=== PATIENT | female | born 1965 | race Native Hawaiian/Other Pacific Islander ===

== ENCOUNTER 2017-11-26 16:46 | Emergency (ER) | payer OTHER, SELFPAY ==
[2017-11-26 16:50] VITALS: BP 156/100; PULSE 77; RESP 15; TEMP 36.6; O2SAT 100
--- NOTE | 2017-11-26 17:07 | ED.CHESTPAIN ---
HPI - Chest Pain <Danica Mcneil PA-C - Last Filed: 11/26/17 19:35> General Chief Complaint: Chest Pain Stated Complaint: ABNORMAL EKG EARLIER TODAY Time Seen by Provider: 11/26/17 17:07 Source: patient and family Mode of arrival: ambulatory Limitations: no limitations History of Present Illness HPI narrative: This 52-year-old female is sent in by her PCP today due to abnormal EKG done at the office. She states that there was some type of concerned because that was different from her previous EKG. She was not given a copy to bring. She states that this was being done because she has been lightheaded. She states that she has a history of chronic vertigo however she has been more lightheaded and at least the last couple of days. She states that she has had a tight chest which started this morning. She has also had chest pain which she describes is burning. She states in quality it is like her acid reflux, but somewhat more severe and was feeling it in her back somewhat today which also prompted her doctor visit. She states overall the reflux has been worse for the last 4-5 days, not responding to Tums as usual and keeping her up at night. She states that she has been coughing due to the reflux and last night actually vomited because of the burning. She has taken Tums today without improvement. She took 2 omeprazole a couple of hours ago and states that it is starting to get better. She denies any abdominal pain or nausea now. She denies any new pain or swelling in her extremities. She denies any wheeze, other upper respiratory symptoms, fever, chills, or sweats. She has not had any bowel or bladder symptoms or any other new complaints. She states that her burning pain in her chest has been fairly consistent without exacerbating or alleviating features, tightness has been persistent also. She thinks this could be correlated with the poor air quality right now as she has a history of lobectomy for lung cancer and some emphysema. Related Data Home Medications Medication Instructions Recorded Confirmed escitalopram oxalate 20 mg PO DAILY 11/26/17 11/26/17 lisinopril 10 mg PO DAILY 11/26/17 11/26/17 omeprazole 40 mg PO DAILY 11/26/17 11/26/17 Previous Rx's Medication Instructions Recorded lidocaine HCl [Lidocaine Viscous] 15 ml MM Q4H PRN #150 ml 11/26/17 Allergies Allergy/AdvReac Type Severity Reaction Status Date / Time No Known Drug Allergies Allergy Verified 11/26/17 16:57 Review of Systems <Danica Mcneil PA-C - Last Filed: 11/26/17 19:35> Review of Systems All systems reviewed & are unremarkable except as noted in HPI and below PFSH <Danica Mcneil PA-C - Last Filed: 11/26/17 19:35> Comment: Twenty-five pack-years tobacco, quit 2006. Denies ETOH or street drugs Exam <RAULITO Rosen Last Filed: 11/26/17 19:35> Narrative Exam Narrative: GENERAL APPEARANCE: Patient sitting comfortably, in no distress. HEENT: PERRL, EOMI, normal oropharynx NECK/THYROID: Neck supple, no JVD, no masses. LUNGS: Clear to auscultation bilaterally, no cough on exam. CHEST: Moderate sternal tenderness to palpation HEART: Regular rate and rhythm without murmur, normal S1, S2, no S3 or S4. ABDOMEN: Soft, NT, ND, + BS x 4 quadrants EXTREMITIES: No cyanosis or edema. No calf tenderness NEUROLOGIC: Alert and oriented, normal speech, gait and coordination. DERMATOLOGIC: No exanthem Initial Vital Signs Initial Vital Signs: Vital Signs Temperature 97.9 F 11/26/17 16:50 Pulse Rate 77 11/26/17 16:50 Respiratory Rate 15 11/26/17 16:50 Blood Pressure 156/100 H 11/26/17 16:50 Pulse Oximetry 100 11/26/17 16:50 <Enrico Fernandez DO - Last Filed: 11/26/17 19:47> Initial Vital Signs Initial Vital Signs: Vital Signs Temperature 97.9 F 11/26/17 16:50 Pulse Rate 77 11/26/17 16:50 Respiratory Rate 15 11/26/17 16:50 Blood Pressure 156/100 H 11/26/17 16:50 Pulse Oximetry 100 11/26/17 16:50 Course <RAULITO Rosen Last Filed: 11/26/17 19:35> Additional Information: Patient has been symptomatic all day, for well over 6 hr prior to her arrival, and during her visit. Workup negative for any acute findings. There were no abnormalities on her EKG, ones from earlier at the clinic or not available for comparison. She felt like she improved substantially after GI cocktail. She did not feel like nebulizer treatment was helpful. She feels like this is an exacerbation of her acid reflux with esophagitis. Was given a prescription for viscous lidocaine to use with liquid antacid and advised to use this for her more severe acute symptoms. Explained her PPI will not treat this. Advised to follow up with her PCP to determine whether to add additional treatment such as H2 farheen. She agreed to return if any acutely worsening symptoms again. Findings reviewed with Dr. Fernandez who is agreeable with discharge home Orders Ordered: ED Orders 11/26/17 17:04 Complete Blood Count AUTO DIFF Stat Comprehensive Metabolic Panel Stat D Dimer Stat Lipase Stat Troponin & CK Cardiac Panel Stat 11/26/17 17:08 XR chest 1V Stat EKG-12 Lead Stat Discontinued Medications Albuterol (Ventolin) 2.5 mg INH NOW ONE Stop: 11/26/17 17:36 Last Admin: 11/26/17 17:52 Dose: 2.5 mg Aspirin (Aspirin Chew) 324 mg PO NOW ONE Stop: 11/26/17 17:09 Last Admin: 11/26/17 17:40 Dose: 324 mg Al Hydrox/Mg Hydrox/Simethicone 20 ml/ Lidocaine HCl 15 ml 0 ml PO NOW ONE Stop: 11/26/17 17:36 Last Admin: 11/26/17 17:43 Dose: 35 ml Sodium Chloride (Normal Saline 0.9%) 1,000 mls @ 150 mls/hr IV CONT MILAGRO Nitroglycerin (Nitrostat) 0.4 mg SL NOW ONE Stop: 11/26/17 18:18 Vital Signs - 8 hr 11/26/17 16:50 11/26/17 17:46 11/26/17 17:52 Temperature 97.9 F Pulse Rate 77 71 Respiratory Rate 15 18 Blood Pressure 156/100 H Blood Pressure [Left Arm] 149/81 H Pulse Oximetry 100 99 100 11/26/17 18:30 Temperature Pulse Rate 80 Respiratory Rate 21 Blood Pressure Blood Pressure [Left Arm] 143/79 H Pulse Oximetry 96 <Enrico Fernandez, DO - Last Filed: 11/26/17 19:47> Orders Ordered: ED Orders 11/26/17 17:04 Complete Blood Count AUTO DIFF Stat Comprehensive Metabolic Panel Stat D Dimer Stat Lipase Stat Troponin & CK Cardiac Panel Stat 11/26/17 17:08 XR chest 1V Stat EKG-12 Lead Stat Discontinued Medications Albuterol (Ventolin) 2.5 mg INH NOW ONE Stop: 11/26/17 17:36 Last Admin: 11/26/17 17:52 Dose: 2.5 mg Aspirin (Aspirin Chew) 324 mg PO NOW ONE Stop: 11/26/17 17:09 Last Admin: 11/26/17 17:40 Dose: 324 mg Al Hydrox/Mg Hydrox/Simethicone 20 ml/ Lidocaine HCl 15 ml 0 ml PO NOW ONE Stop: 11/26/17 17:36 Last Admin: 11/26/17 17:43 Dose: 35 ml Sodium Chloride (Normal Saline 0.9%) 1,000 mls @ 150 mls/hr IV CONT MILAGRO Nitroglycerin (Nitrostat) 0.4 mg SL NOW ONE Stop: 11/26/17 18:18 Vital Signs - 8 hr 11/26/17 16:50 11/26/17 17:46 11/26/17 17:52 Temperature 97.9 F Pulse Rate 77 71 Respiratory Rate 15 18 Blood Pressure 156/100 H Blood Pressure [Left Arm] 149/81 H Pulse Oximetry 100 99 100 11/26/17 18:30 Temperature Pulse Rate 80 Respiratory Rate 21 Blood Pressure Blood Pressure [Left Arm] 143/79 H Pulse Oximetry 96 MDM - Chest Pain <Danica Mcneil PA-C - Last Filed: 11/26/17 19:35> Lab Data Result diagrams: 11/26/17 17:04 11/26/17 17:04 Lab Results 11/26/17 11/26/17 11/26/17 Range/Units 17:04 17:04 17:04 WBC 7.1 (4.5-11.0) X10^3/uL RBC 4.55 (4.0-5.2) X10^6/uL Hgb 13.6 (12.0-16.0) g/dL Hct 40.3 (36-46) % MCV 88.5 (80-100) fL MCH 30.0 (26-34) PG MCHC 33.9 (30-36) % RDW 13.5 (11.6-14.8) % Plt Count 270 (150-400) X10^3/uL Neut % (Auto) 51.5 (50-75) % Lymph % (Auto) 34.3 (25-40) % [place] % (Auto) 10.4 (3-14) % Eos % (Auto) 2.4 (2-4) % Baso % (Auto) 1.4 (0-2) % Neut # (Auto) 3600 (5088-6907) /uL D-Dimer < 200 (<230) ng/mL Sodium 140 (137-145) mmol/L Potassium 3.8 (3.4-5.1) mmol/L Chloride 101 (98-107) mmol/L Carbon Dioxide 31 (22-32) mmol/L BUN 20 H (7-17) mg/dL Creatinine 0.90 (0.52-1.04) mg/dL Estimated GFR > 60.0 (>60) mL/min BUN/Creatinine Ratio 22.2 H (6-22) Glucose 88 (70-100) mg/dL Calcium 10.0 (8.4-10.2) mg/dL Total Bilirubin 0.7 (0.2-1.3) mg/dL AST 31 (14-36) IU/L ALT 32 (9-52) IU/L Alkaline Phosphatase 89 (38-126) U/L Total Creatine Kinase 146 H (30-135) U/L CK-MB (CK-2) 1.32 (<2.37) ng/mL CK-MB (CK-2) Rel Index 0.9 L (1.5-5.0) % Troponin I < 0.012 (0.01-0.034) ng/mL Total Protein 7.8 (6.3-8.2) g/dL Albumin 4.4 (3.5-5.0) g/dL Globulin 3.4 (1.7-4.1) g/dL Albumin/Globulin Ratio 1.3 (1.0-2.8) Lipase 108 (23-300) U/L Imaging Data Chest x-ray: Radiologist's impression: BACK Chest X-Ray (Signed) Shy Lawson - 11/26/17 View Report History [address] [address] XRay Report Signed Patient: Belinda Chua MR#: [id number] : 1965 Acct:[id number] Age/Sex: 52 / F Date of Service: 11/26/17 Loc: ED Accession Number: [id number] Procedure: XR chest 1V Ordering Provider: Danica Mcneil P.A-C PROCEDURE: XR CHEST 1V INDICATIONS: pain TECHNIQUE: One view of the chest was acquired. COMPARISON: [facility], CHEST 1 VIEW, 08/03/2015, 18:48. FINDINGS: Surgical changes and devices: Surgical sutures along the right cardiac/aortic border are stable. Lungs and pleura: No pleural effusions or pneumothorax. Lungs are clear. Mediastinum: Mediastinal contours appear normal. Heart size is normal. Bones and chest wall: No suspicious bony lesions. Overlying soft tissues appear unremarkable. IMPRESSION: No acute cardiopulmonary disease process. Dictated by: Shy Lawson MD, PhD on 11/26/2017 at 17:25 Approved by: Shy Lawson MD, PhD on 11/26/2017 at 17:25 ECG Data Attestation: I personally reviewed and interpreted this ECG as follows: (Normal sinus rhythm with rate 69, normal axis) <Enrico Fernandez, DO - Last Filed: 11/26/17 19:47> Lab Data Lab Results 11/26/17 11/26/17 11/26/17 Range/Units 17:04 17:04 17:04 WBC 7.1 (4.5-11.0) X10^3/uL RBC 4.55 (4.0-5.2) X10^6/uL Hgb 13.6 (12.0-16.0) g/dL Hct 40.3 (36-46) % MCV 88.5 (80-100) fL MCH 30.0 (26-34) PG MCHC 33.9 (30-36) % RDW 13.5 (11.6-14.8) % Plt Count 270 (150-400) X10^3/uL Neut % (Auto) 51.5 (50-75) % Lymph % (Auto) 34.3 (25-40) % [place] % (Auto) 10.4 (3-14) % Eos % (Auto) 2.4 (2-4) % Baso % (Auto) 1.4 (0-2) % Neut # (Auto) 3600 (0063-4888) /uL D-Dimer < 200 (<230) ng/mL Sodium 140 (137-145) mmol/L Potassium 3.8 (3.4-5.1) mmol/L Chloride 101 (98-107) mmol/L Carbon Dioxide 31 (22-32) mmol/L BUN 20 H (7-17) mg/dL Creatinine 0.90 (0.52-1.04) mg/dL Estimated GFR > 60.0 (>60) mL/min BUN/Creatinine Ratio 22.2 H (6-22) Glucose 88 (70-100) mg/dL Calcium 10.0 (8.4-10.2) mg/dL Total Bilirubin 0.7 (0.2-1.3) mg/dL AST 31 (14-36) IU/L ALT 32 (9-52) IU/L Alkaline Phosphatase 89 (38-126) U/L Total Creatine Kinase 146 H (30-135) U/L CK-MB (CK-2) 1.32 (<2.37) ng/mL CK-MB (CK-2) Rel Index 0.9 L (1.5-5.0) % Troponin I < 0.012 (0.01-0.034) ng/mL Total Protein 7.8 (6.3-8.2) g/dL Albumin 4.4 (3.5-5.0) g/dL Globulin 3.4 (1.7-4.1) g/dL Albumin/Globulin Ratio 1.3 (1.0-2.8) Lipase 108 (23-300) U/L Discharge Plan Departure Patient Disposition: Home Clinical Impression: Atypical chest pain Discharge Date/Time: 11/26/17 19:33 Interventions: ED Discharge Assessment Last Done: 11/26/17 19:00 Instructions: DI for Gastroesophageal Reflux Disease (GERD), DI for Atypical Chest Pain, GERD Diet Activity Restrictions/Additional Instructions: Please return if you have any acutely worsening symptoms again such as worsening pain or chest tightness, or new symptoms such as nausea, feeling short of breath or more dizzy. Your EKG, x-ray and lab tests did not show any specific abnormalities to explain your pain and chest tightness today. Since you are feeling better after the medicines we gave you, it is reasonable to monitor at home, as this may be an exacerbation of your acid reflux. You may also have some airway sensitivity to the smokey air outside given your lung history. I have sent a prescription for a liquid antacid/anesthetic combination to the pharmacy for you to use for your more severe acid reflux pain as needed. You should continue your omeprazole, but remember for acute symptoms you should try this or a liquid antacid as this will help sooth your throat and foodpipe. You may wish to take with your PCP about adding an additional medication such as zantac or pepcid. Prescriptions: New lidocaine HCl [Lidocaine Viscous] 2 % solution 15 ml MM Q4H PRN (Reason: mouth pain) Qty: 150 RF: 0 No Action escitalopram oxalate 20 mg Tablet 20 mg PO DAILY RF: 0 lisinopril 10 mg Tablet 10 mg PO DAILY RF: 0 omeprazole 20 mg Capsule,Delayed Release(Dr/Ec) 40 mg PO DAILY RF: 0 Referrals: Og Dempsey [Primary Care Provider] - <Enrico Fernandez DO - Last Filed: 11/26/17 19:47> Cosign ED Attending Trippature Attestation: I was available for consultation during this patient's emergency department encounter
[2017-11-26 17:16] LABS: Add Manual Diff / Slide Review NO; Basophils Percent Auto 1.4 % (0-2); Eosinophils Percent Auto 2.4 % (2-4); Hematocrit 40.3 % (36-46); Hemoglobin 13.6 g/dL (12.0-16.0); Lymphocytes Percent Auto 34.3 % (25-40); Mean Corpuscular HGB Conc 33.9 % (30-36); Mean Corpuscular Volume 88.5 fL (80-100); Monocytes Percent Auto 10.4 % (3-14); Neutrophils Absolute Auto 3600 /uL (3000-5900); Neutrophils Percent Auto 51.5 % (50-75); Platelet Count 270 X10^3/uL (150-400); Red Blood Cell Count 4.55 X10^6/uL (4.0-5.2); Red Cell Distribution Width 13.5 % (11.6-14.8); White Blood Cell Count 7.1 X10^3/uL (4.5-11.0)
[2017-11-26 17:27] LABS: Alanine Aminotransferase 32 IU/L (9-52); Albumin 4.4 g/dL (3.5-5.0); Albumin Globulin Ratio 1.3 (1.0-2.8); Alkaline Phosphatase 89 U/L (38-126); Aspartate Aminotransferase 31 IU/L (14-36); BUN Creatinine Ratio 22.2 (6-22); Bilirubin Total 0.7 mg/dL (0.2-1.3); Blood Urea Nitrogen 20 mg/dL (7-17); Carbon Dioxide 31 mmol/L (22-32); Chloride 101 mmol/L (98-107); Creatine Kinase 146 U/L (30-135); Estimated Glomerular Filt Rate > 60.0 mL/min (>60); Globulin 3.4 g/dL (1.7-4.1); Glucose 88 mg/dL (70-100); HEMOLYSIS 20 (0-50); Lipase 108 U/L (23-300); Potassium 3.8 mmol/L (3.4-5.1); Sodium 140 mmol/L (137-145); Total Protein 7.8 g/dL (6.3-8.2)
[2017-11-26] MEDS: ASPIRIN 81 MG TAB 324 MG PO (17:40)
[2017-11-26 17:42] LABS: CKMB % Relative Index 0.9 % (1.5-5.0); Creatine Kinase MB 1.32 ng/mL (<2.37); Troponin I < 0.012 ng/mL (0.01-0.034)
[2017-11-26] MEDS: MAG HYDROX/ALUMINUM/SIMETH SUS 20 ML, LIDOCAINE VISCOUS 2% 15 ML PO (17:43)
[2017-11-26 17:46] VITALS: BP 149/81; PULSE 71; RESP 18; O2SAT 99
[2017-11-26 17:52] VITALS: O2SAT 100
[2017-11-26] MEDS: ALBUTEROL 2.5 MG/3 ML NEB (ADULT) INH (17:52)
[2017-11-26 17:55] LABS: D Dimer < 200 ng/mL (<230)
[2017-11-26 18:30] VITALS: BP 143/79; PULSE 80; RESP 21; O2SAT 96
--- NOTE | 2018-01-15 10:04 | ONC.SCHED ---
called patient to come in for one year follow up. Per patient she stated it was supposed to be a 2 year follow up and that she didn't want to come in. She stated that she hasn't lost any weight nothing has changed except for the fact that she has gained some weight. I told her I would note this in her chart and call her next year.
== END 2017-11-26 19:33 | disposition home or self-care (01) ==
PROVIDERS: Emergency Provider Internal Medicine; Family Provider Family Medicine; PCP Family Medicine
DX: R07.89 Other chest pain (principal)
CPT/HCPCS: 36591; 71045; 80053; 82550; 82553; 83690; 84484; 85025; 85379; 93005; 93010; 94640; 99282; 99285; J7613

== ENCOUNTER → 2018-04-20 12:49 | Outpatient (CLI) | payer OTHER, SELFPAY ==
--- NOTE | 2018-04-20 13:08 | DI.CT.S_ITS ---
PROCEDURE: CT CHEST ABD PEL W CON INDICATIONS: Clinical history provided states malignant neoplasm of upper lobe of left lung, pulmonary emphysema. Surveillance. TECHNIQUE: After the administration of oral and intravenous contrast, 5 mm thick sections acquired from the lung apices to the symphysis. 5 mm coronal and sagittal reformats were performed, with additional 7 mm coronal MIP reformats through the lungs. For radiation dose reduction, the following was used: automated exposure control, adjustment of mA and/or kV according to patient size. COMPARISON: None. FINDINGS: Image quality: Excellent. CHEST: Lungs and pleura: No acute airspace opacities. Emphysematous changes noted over the lung parenchyma bilaterally. No chronic or acute mass or inflammatory change is found. No pleural effusions or pneumothorax. Central and peripheral airways appear patent and normal in caliber. Mediastinum: Heart size is normal. No pericardial effusion. No mediastinal or hilar adenopathy by size criteria. Thoracic aorta and central pulmonary arteries are normal in size. Esophagus is normal in caliber. No hiatal hernia. Chest wall: No axillary or supraclavicular adenopathy by size criteria. Thyroid gland appears normal. ABDOMEN: Solid organs: Liver is normal in size and enhancement except for the presence of 2 hypodensities at the upper margin of the right hepatic lobe and the upper margin of the left hepatic lobe. These measure 9 mm and 8 mm respectively, and are best seen centered on series 2 image 48. The left hepatic lobe nodule has small areas of discontinuous peripheral nodular enhancement and may represent a hemangioma. More inferiorly at the same axial level of the lower right hepatic lobe and lower left hepatic lobe are 2 additional hypodense nodules, ma nonspecific in appearance, measuring up to 1 cm on the right and 7 mm on the left. These are best seen centered on series 2 image 60. Gallbladder appears normal. Biliary system is non dilated. Pancreas enhances normally. Spleen is normal in size and enhancement. No adrenal nodules. Kidneys demonstrate normal size and enhancement, without hydronephrosis. Peritoneum and bowel: Bowel loops demonstrate normal wall thickness and caliber. No free fluid or air. Nodes and vessels: No retroperitoneal or mesenteric adenopathy by size criteria. Aorta and inferior vena cava are normal in size. Miscellaneous: No ventral hernias. PELVIS: Genitourinary: Bladder wall thickness is normal. Miscellaneous: No inguinal hernias or adenopathy. Bones: No suspicious bony lesions. No vertebral body compression fractures. IMPRESSION: The clinical history indicates likelihood of comparison plain films existing for this patient, and it would be very helpful to obtain those for review given findings noted below. There is a finding of 4 separate small nodules within the liver parenchyma, each of which could represent metastatic disease. Hepatic MRI, multiphase, followup scanning is recommended to more accurately assess these abnormalities unless comparison studies show them to be chronic over time. Dictated by: Jeffrey Duong M.D. on 04/21/2018 at 15:21 Approved by: Jeffrey Duong M.D. on 04/21/2018 at 15:34
[2018-04-20 14:17] LABS: Alanine Aminotransferase 25 IU/L (9-52); Albumin 4.5 g/dL (3.5-5.0); Albumin Globulin Ratio 1.3 (1.0-2.8); Alkaline Phosphatase 71 U/L (38-126); Aspartate Aminotransferase 24 IU/L (14-36); Bilirubin Total 1.2 mg/dL (0.2-1.3); Blood Urea Nitrogen 17 mg/dL (7-17); Calcium 10.2 mg/dL (8.4-10.2); Carbon Dioxide 28 mmol/L (22-32); Chloride 99 mmol/L (98-107); Estimated Glomerular Filt Rate 57.8 mL/min (>60); Globulin 3.6 g/dL (1.7-4.1); Glucose 98 mg/dL (70-100); HEMOLYSIS 15 (0-50); Lactate Dehydrogenase 438 U/L (313-618); Potassium 3.8 mmol/L (3.4-5.1); Sodium 137 mmol/L (137-145); Total Protein 8.1 g/dL (6.3-8.2)
[2018-04-20 14:26] LABS: Add Manual Diff / Slide Review NO; Basophils Absolute Auto 100 /uL (0-100); Basophils Percent Auto 1.3 % (0-2); Eosinophils Absolute Auto 100 /uL (0-450); Eosinophils Percent Auto 1.8 % (2-4); Hematocrit 40.8 % (36-46); Hemoglobin 13.5 g/dL (12.0-16.0); Lymphocytes Absolute Auto 2700 /uL (1100-4500); Lymphocytes Percent Auto 33.9 % (25-40); Mean Corpuscular HGB Conc 33.1 % (30-36); Mean Corpuscular Hemoglobin 29.5 PG (26-34); Mean Corpuscular Volume 89.2 fL (80-100); Monocytes Absolute Auto 600 /uL (0-900); Monocytes Percent Auto 7.3 % (3-14); Neutrophils Absolute Auto 4400 /uL (1500-7000); Neutrophils Percent Auto 55.7 % (50-75); Platelet Count 326 X10^3/uL (150-400); Red Blood Cell Count 4.58 X10^6/uL (4.0-5.2); White Blood Cell Count 7.9 X10^3/uL (4.5-11.0)
== END ==
PROVIDERS: Family Provider Family Medicine; PCP Family Medicine; Visit Provider Internal Medicine Hematology & Oncology
DX: C34.12 Malignant neoplasm of upper lobe, left bronchus or lung (principal); J43.9 Emphysema, unspecified; Z85.118 Personal history of other malignant neoplasm of bronchus and lung; K76.9 Liver disease, unspecified
CPT/HCPCS: 71260; 74177; 80053; 83615; 85025; Q9967

== ENCOUNTER → 2018-05-11 16:13 | Outpatient (CLI) | payer OTHER, SELFPAY ==
[2018-05-11 16:37] LABS: Add Manual Diff / Slide Review NO; Basophils Absolute Auto 100 /uL (0-100); Basophils Percent Auto 0.5 % (0-2); Eosinophils Absolute Auto 300 /uL (0-450); Eosinophils Percent Auto 2.4 % (2-4); Hematocrit 39.7 % (36-46); Hemoglobin 13.1 g/dL (12.0-16.0); Lymphocytes Absolute Auto 2100 /uL (1100-4500); Lymphocytes Percent Auto 18.3 % (25-40); Mean Corpuscular HGB Conc 33.1 % (30-36); Mean Corpuscular Hemoglobin 29.4 PG (26-34); Mean Corpuscular Volume 88.8 fL (80-100); Monocytes Absolute Auto 600 /uL (0-900); Monocytes Percent Auto 5.4 % (3-14); Neutrophils Absolute Auto 8600 /uL (1500-7000); Neutrophils Percent Auto 73.4 % (50-75); Platelet Count 321 X10^3/uL (150-400); Red Blood Cell Count 4.47 X10^6/uL (4.0-5.2); Red Cell Distribution Width 12.9 % (11.6-14.8); White Blood Cell Count 11.7 X10^3/uL (4.5-11.0)
[2018-05-11 17:16] LABS: Alanine Aminotransferase 30 IU/L (9-52); Albumin 4.1 g/dL (3.5-5.0); Albumin Globulin Ratio 1.3 (1.0-2.8); Alkaline Phosphatase 66 U/L (38-126); Aspartate Aminotransferase 19 IU/L (14-36); BUN Creatinine Ratio 24.4 (6-22); Bilirubin Total 0.6 mg/dL (0.2-1.3); Blood Urea Nitrogen 22 mg/dL (7-17); Carbon Dioxide 29 mmol/L (22-32); Chloride 102 mmol/L (98-107); Estimated Glomerular Filt Rate > 60.0 mL/min (>60); Globulin 3.2 g/dL (1.7-4.1); Glucose 117 mg/dL (70-100); HEMOLYSIS < 15 (0-50); Sodium 140 mmol/L (137-145); Total Protein 7.3 g/dL (6.3-8.2)
[2018-05-11 17:45] LABS: Carcinoembryonic Antigen 0.5 ng/mL (0.1-3.0)
[2018-05-14 20:18] LABS: Cancer Antigen 27.29 14 U/mL (< 38)
== END ==
PROVIDERS: Family Provider Family Medicine; PCP Family Medicine; Visit Provider Internal Medicine Hematology & Oncology
DX: C34.12 Malignant neoplasm of upper lobe, left bronchus or lung (principal)
CPT/HCPCS: 36415; 80053; 82105; 82378; 85025; 86300

== ENCOUNTER → 2018-05-25 12:30 | Oncology outpatient (ONC) | payer OTHER, SELFPAY ==
--- NOTE | 2018-04-13 16:39 | P.PNONC_ITS ---
PN -Subjective Interval history: Mrs. Chua is a 52 year old female whom I saw for the first time today. Previously she has been followed by Dr. Morin. She was last seen at [facility] on 02/17/2017. I reviewed all the medical records available. 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 Eighteen lymph nodes were removed and all were negative including station 5-6, station 7, station 8, station 11, and intra pulmonary. Postoperatively she did not require any adjuvant chemotherapy or radiation therapy and has been followed on active surveillance basis. Patient has been getting regular scans more frequent in the beginning and later spaced out. At the most recent CT scan of the chest was in May 2016 which reportedly was negative. About 4.5 months ago, she started noticing worsening indigestion and heartburn. In addition patient reported that after eating or drinking about 40 min later , patient would develop nonproductive brief coughing spell followed by vomiting. She said she did not have any nausea before the vomiting. She also reported vomiting dark blood or a light blood. Patient has history of acid reflux for a long time and she had upper and lower endoscopy about [address] Hdez. She is scheduled to see Dr. Lissette Braswell. Patient denies any abdominal pain, denies diarrhea or constipation. Patient reported good appetite. However for the past 1 year, she said she has lost about 20-30 lb presumably due to vomiting over the past 4-5 months. Patient denies any headache double vision or blurred vision. Patient is complaining long standing right upper arm pain. Patient denies any back pain. Patient denies any other bone pain. - Additional ROS All systems PM: reviewed and no additional remarkable complaints except as stated Home Medications and Allergies Allergies Allergy/AdvReac Type Severity Reaction Status Date / Time No Known Drug Allergies Allergy Verified 11/26/17 16:57 Exam Vital signs: Last Vital Signs Temp 99.3 F 04/13/18 16:46 Pulse 72 04/13/18 16:46 Resp 19 04/13/18 16:46 BP 118/82 04/13/18 16:46 Pulse Ox 100 04/13/18 16:46 ECOG 1 Narrative: Constitutional: WDWN, NAD, average body habitus, well groomed, pleasant and cooperative, accompanied by her . HEENT: NCAT, EOMI, PERRLA, anicteric sclera, no hearing difficulty; Oral mucus membrane moist and without ulcers. Neck: Supple, symmetrical, and tracheal midline; No palpable thyromegaly and no palpable lymph nodes. Respiratory: No use of accessory muscles. Clear to auscultation, and no wheezes or rales or rubs. Cardiovascular: Regular rate and rhythm, S1 and S2 normal, no murmurs gallops or rubs. No JVD. No pitting edema of lower extremities. Abdomen: Soft, nontender, non-distended, bowel sounds normal, no palpable organomegaly, no hernia, no palpable masses. Lower extremities: No palpable pedal edema. Lymphatic: no palpable lymph nodes in the neck, axillae, or groins. Musculoskeletal: normal gait and station, no clubbing, no cyanosis, no pitting edema. Skin: no rashes, no ulcers, no petechiae Neurological: Awake and alert and oriented x3. CN II-XII grossly intact. No focal motor or sensory deficit. Psychiatric: Good judgment, good insight, normal affect, normal thought process , cooperative, no depression, no anxiety. Results - Labs Pending. Assessment and Plan (1) Malignant neoplasm of upper lobe of left lung Left upper lung poorly differentiated NSCLC, pT1 pN0 pMx, s/p wedge resection of left upper lobe followed by left upper lobectomy and mediastinal lymph node resection 10/20/2006. 18 nodes negetive. She did not require any adjuvant chemotherapy or radiation therapy. On active surveillance. Recently, she developed post-prandial cough spell with vomiting about 4-5 months ago, and weight loss of 20-30 lbs. I discussed with the patient that it is almost 12 years since after the surgery. It is very unlikely that the previous diagnosis of left lung cancer recurs. The exact etiology of the coughing spell followed by vomiting is not clear at this moment. Patient said that she has already been referred to addiction social worker for repeat upper endoscopy at [facility]. I talked with her and her that I will proceed with a repeat scan including CT scan of the chest abdomen and pelvis. Plan: 1. CBC, CMP, LDH 2. CT CAP w/contrast 3. RTC after scan is done.
[2018-04-13 16:46] VITALS: BP 118/82; PULSE 72; RESP 19; TEMP 37.4; O2SAT 100
--- NOTE | 2018-04-22 13:50 | PC.NURSE ---
Pt called requesting results of her labs and CT ordered by Dr Bello and done on 04/20. I explained to pt that I was not able to help her interrupt her labs nor her CT since both had not be reviewed by the provider. I did offer to pull the results and leave them in an envelope for her to look thru. She declined and would see the Dr on 04/27 for results
[2018-05-07 10:08] VITALS: BP 149/98; PULSE 66; RESP 18; TEMP 36.6; O2SAT 98
--- NOTE | 2018-05-07 10:13 | ONC.PN ---
PN -Subjective Interval history: Mrs. Chua is a 52 year old female. 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 Recently she presented with post-prandial cough spell with vomiting about 4-5 months ago, as well as heart burn and hematemesis and weight loss of 20-30 lbs. After her previous visit with me, patient was evaluated by Dr. Lissette Braswell. Patient is scheduled for a upper endoscopy on 05/22/2018. Clinically patient continues to complain epigastric pain, vomiting, anxiety, and occasionally hematemesis. Patient underwent CT scan of the chest abdomen and pelvis on 04/20/2018. The scan showed 4 separate small nodules within the liver parenchyma each of which could represent metastatic disease. Hepatic MRI a multiphase was recommended. 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 Eighteen lymph nodes were removed and all were negative including station 5-6, station 7, station 8, station 11, and intra pulmonary. Postoperatively she did not require any adjuvant chemotherapy or radiation therapy and has been followed on active surveillance basis. Patient has been getting regular scans more frequent in the beginning and later spaced out. CT scan of the chest was in May 2016 which reportedly was negative. - Additional ROS All systems PM: reviewed and no additional remarkable complaints except as stated Home Medications and Allergies Allergies Allergy/AdvReac Type Severity Reaction Status Date / Time No Known Drug Allergies Allergy Verified 11/26/17 16:57 Exam Vital signs: Last Vital Signs Temp 97.9 F 05/07/18 10:08 Pulse 66 05/07/18 10:08 Resp 18 05/07/18 10:08 BP 149/98 H 05/07/18 10:08 Pulse Ox 98 05/07/18 10:08 ECOG 1 Narrative: Constitutional: WDWN, NAD, average body habitus, well groomed, pleasant and cooperative, accompanied by her . HEENT: NCAT, EOMI, PERRLA, anicteric sclera, no hearing difficulty; Oral mucus membrane moist and without ulcers. Neck: Supple, symmetrical, and tracheal midline; No palpable thyromegaly and no palpable lymph nodes. Respiratory: No use of accessory muscles. Clear to auscultation, and no wheezes or rales or rubs. Cardiovascular: Regular rate and rhythm, S1 and S2 normal, no murmurs gallops or rubs. No JVD. No pitting edema of lower extremities. Abdomen: Soft, mild epigastric tender, non-distended, bowel sounds normal, no palpable organomegaly, no hernia, no palpable masses. Lower extremities: No palpable pedal edema. Lymphatic: no palpable lymph nodes in the neck, axillae, or groins. Musculoskeletal: normal gait and station, no clubbing, no cyanosis, no pitting edema. Skin: no rashes, no ulcers, no petechiae Neurological: Awake and alert and oriented x3. CN II-XII grossly intact. No focal motor or sensory deficit. Psychiatric: Good judgment, good insight, normal affect, normal thought process, cooperative, no depression, no anxiety. Results - Labs Reviewed Assessment and Plan (1) Malignant neoplasm of upper lobe of left lung Left upper lung poorly differentiated NSCLC, pT1 pN0 pMx, s/p wedge resection of left upper lobe followed by left upper lobectomy and mediastinal lymph node resection 10/20/2006. 18/18 nodes negetive. She did not require any adjuvant chemotherapy or radiation therapy. On active surveillance. Recently, she developed post-prandial cough spell with vomiting about 4-5 months ago, and weight loss of 20-30 lbs. Today, I reviewed the CT scan of the chest abdomen and pelvis on the computer screen including the actual scan images with the patient and also the report. There are multiple hypodensities within the liver. The CT scan of the chest did not see any abnormal nodules or opacities. Explained to the patient that the imaging studies highly suspicious for metastatic disease from other sources. Possibilities include esophageal cancer, gastric cancer, hepatocellular carcinoma, colon cancer or metastatic recurrence from her previous lung cancer. Plan: 1. CA 19-9, CEA, and AFP 2. MRI liver, multiphase protocol 3. PET/CT 4. Upper endoscopy 05/22/2018 as scheduled. 5. RTC in 2 weeks. (2) Metastasis to liver of unknown origin See the above discussion.
--- NOTE | 2018-05-11 09:57 | ONC.SCHED ---
RE: PET/CT: Called [facility] to check on PET/CT ordered 05/[address] Bello. Per [facility], patient was scheduled for 05/13, but cancelled on 05/11 until further notice.
--- NOTE | 2018-05-25 12:45 | P.PNONC_ITS ---
PN -Subjective Interval history: Mrs. Chua is a 52 year old female. 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 Recently she presented with post-prandial cough spell with vomiting about 4-5 months ago, as well as heart burn and hematemesis and weight loss of 20-30 lbs. After her previous visit with me, patient was evaluated by Dr. Lissette Braswell. Patient was scheduled for a upper endoscopy on 05/22/2018. Patient underwent CT scan of the chest abdomen and pelvis on 04/20/2018. The scan showed 4 separate small nodules within the liver parenchyma each of which could represent metastatic disease. Hepatic MRI a multiphase was recommended. During his previous visit, I ordered MRI of the hepatic protocol as well as PET- CT. In addition patient at that time was scheduled for upper endoscopy on 05/22/2018. Apparently patient has not completed these exams yet. Clinically no new changes. 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 Eighteen lymph nodes were removed and all were negative including station 5-6, station 7, station 8, station 11, and intra pulmonary. Postoperatively she did not require any adjuvant chemotherapy or radiation therapy and has been followed on active surveillance basis. Patient has been getting regular scans more frequent in the beginning and later spaced out. CT scan of the chest was in May 2016 which reportedly was negative. - Patient Self-Reported Symptoms SR Gastrointestinal issues: Vomiting, Abdominal pain, Heartburn Home Medications and Allergies Allergies Allergy/AdvReac Type Severity Reaction Status Date / Time No Known Drug Allergies Allergy Verified 11/26/17 16:57 Exam Vital signs: Last Vital Signs Temp 97.8 F 05/25/18 12:51 Pulse 88 05/25/18 12:51 Resp 19 05/25/18 12:51 BP 127/78 05/25/18 12:51 Pulse Ox 100 05/25/18 12:51 ECOG 1 Narrative: Constitutional: WDWN, NAD, average body habitus, well groomed, pleasant and cooperative HEENT: NCAT, EOMI, PERRLA, anicteric sclera, no hearing difficulty; Oral mucus membrane moist and without ulcers. Neck: Supple, symmetrical, and tracheal midline; No palpable thyromegaly and no palpable lymph nodes. Respiratory: No use of accessory muscles. Clear to auscultation, and no wheezes or rales or rubs. Cardiovascular: Regular rate and rhythm, S1 and S2 normal, no murmurs gallops or rubs. No JVD. No pitting edema of lower extremities. Abdomen: Soft, mild epigastric tender, non-distended, bowel sounds normal, no palpable organomegaly, no hernia, no palpable masses. Lower extremities: No palpable pedal edema. Lymphatic: no palpable lymph nodes in the neck, axillae, or groins. Musculoskeletal: normal gait and station, no clubbing, no cyanosis, no pitting edema. Skin: no rashes, no ulcers, no petechiae Neurological: Awake and alert and oriented x3. CN II-XII grossly intact. No focal motor or sensory deficit. Psychiatric: Good judgment, good insight, normal affect, normal thought process, cooperative, no depression, no anxiety. Results - Labs None from today Assessment and Plan (1) Malignant neoplasm of upper lobe of left lung Assessment and Plan: Left upper lung poorly differentiated NSCLC, pT1 pN0 pMx, s/p wedge resection of left upper lobe followed by left upper lobectomy and mediastinal lymph node resection 10/20/2006. 18/18 nodes negetive. She did not require any adjuvant chemotherapy or radiation therapy. I reviewed the laboratory tests with the patient especially the tumor markers. Both CA 19-9 and CEA are normal. AFP is also normal. However patient has not had the MRI liver protocol as well as the PET scan yet. Encouraged the patient continue and complete the tests and come back to see me. Patient voiced understanding. (2) Metastasis to liver of unknown origin See the above discussion.
[2018-05-25 12:51] VITALS: BP 127/78; PULSE 88; RESP 19; TEMP 36.6; O2SAT 100
== END ==
PROVIDERS: Family Provider Family Medicine; PCP Family Medicine; Visit Provider Internal Medicine Hematology & Oncology
DX: C78.7 Secondary malignant neoplasm of liver and intrahepatic bile duct (principal); C80.1 Malignant (primary) neoplasm, unspecified; R05 Cough; R11.10 Vomiting, unspecified; R63.4 Abnormal weight loss; Z85.118 Personal history of other malignant neoplasm of bronchus and lung; Z87.891 Personal history of nicotine dependence
CPT/HCPCS: 99214; 99215

== ENCOUNTER → 2018-10-06 11:57 | Outpatient (CLI) | payer OTHER, SELFPAY ==
[2018-10-06 13:24] LABS: HEMOLYSIS < 15 (0-50); Potassium 4.2 mmol/L (3.4-5.1)
== END ==
PROVIDERS: PCP Family Medicine; Visit Provider Family Medicine
DX: E87.5 Hyperkalemia (principal)
CPT/HCPCS: 36415; 84132

== ENCOUNTER → 2019-06-07 09:32 | Outpatient (CLI) | payer OTHER, SELFPAY ==
[2019-06-07 10:35] LABS: HEMOLYSIS < 15 (0-50)
== END ==
PROVIDERS: PCP Family Medicine; Referring Provider Family Medicine; Visit Provider Family Medicine
DX: E87.5 Hyperkalemia (principal)
CPT/HCPCS: 36415; 84132

== ENCOUNTER → 2019-06-23 11:23 | Outpatient (CLI) | payer OTHER, SELFPAY ==
--- NOTE | 2019-06-23 | DI.MG.S_ITS ---
BILATERAL DIGITAL SCREENING MAMMOGRAM 3D/2D WITH CAD: 06/23/2019 CLINICAL: Routine screening. Family history of breast cancer. Comparison is made to exams dated: 10/10/2015 mammogram, 10/30/2016 mammogram, and 02/10/2018 mammogram - [facility]. There are scattered fibroglandular elements in both breasts. Current study was also evaluated with a Computer Aided Detection (CAD) system. There is a biopsy clip in the left breast. No significant masses, calcifications, or other findings are seen in either breast. There has been no significant interval change. IMPRESSION: NEGATIVE There is no mammographic evidence of malignancy. A 1 year screening mammogram is recommended. This exam was interpreted at Station ID: [id number]. NOTE: For mammograms, a report in lay terms will be sent to the patient. Approximately 15% of breast malignancies will not be visualized mammographically. In the management of a palpable breast mass, a negative mammogram must not discourage biopsy of a clinically suspicious lesion. Electronically Signed By: Della garg/melody:06/23/2019 13:14:31 letter sent: Normal Exam ACR BI-RADS Category 1: Negative [id number]
== END ==
PROVIDERS: PCP Family Medicine; Referring Provider Family Medicine; Visit Provider Family Medicine
DX: Z12.31 Encounter for screening mammogram for malignant neoplasm of breast (principal); Z80.3 Family history of malignant neoplasm of breast
CPT/HCPCS: 77063; 77067

== ENCOUNTER 2021-04-17 11:23 | Emergency (ER) | payer OTHER, SELFPAY ==
[2021-04-17] VITALS (9 sets, daily range): BP systolic 117–160; BP diastolic 59–96; PULSE 74–92; RESP 19–33; TEMP 36.6; O2SAT 93–99; BMI 28.8
--- NOTE | 2021-04-17 11:47 | DI.RAD.S_ITS ---
PROCEDURE: XR CHEST 1V INDICATIONS: flu-like symptoms TECHNIQUE: One view of the chest was acquired. COMPARISON: [facility], CR, XR CHEST 1V, 11/26/2017, 17:20. FINDINGS: Surgical changes and devices: Surgical clips are again seen in left suprahilar region. Lungs and pleura: Lungs are clear. No pleural effusions or pneumothorax. Mediastinum: Mediastinal contours appear normal. Heart size is normal. Bones and chest wall: No suspicious bony lesions. Overlying soft tissues appear unremarkable. IMPRESSION: No acute cardiopulmonary pathology. Dictated by: Tobi Brown M.D. on 04/17/2021 at 12:40 Approved by: Tobi Brown M.D. on 04/17/2021 at 12:40
[2021-04-17 12:41] LABS: Add Manual Diff / Slide Review NO; Basophils Absolute Auto 0 /uL (0-100); Basophils Percent Auto 0.4 % (0-2); Eosinophils Absolute Auto 400 /uL (0-450); Eosinophils Percent Auto 3.3 % (2-4); Hematocrit 37.8 % (36-46); Hemoglobin 12.8 g/dL (12.0-16.0); Lymphocytes Absolute Auto 2500 /uL (1100-4500); Lymphocytes Percent Auto 23.4 % (25-40); Mean Corpuscular HGB Conc 33.8 % (30-36); Mean Corpuscular Hemoglobin 29.5 PG (26-34); Mean Corpuscular Volume 87.4 fL (80-100); Monocytes Absolute Auto 800 /uL (0-900); Monocytes Percent Auto 7.1 % (3-14); Neutrophils Absolute Auto 7000 /uL (1500-7000); Neutrophils Percent Auto 65.8 % (50-75); Platelet Count 283 X10^3/uL (150-400); Red Blood Cell Count 4.32 X10^6/uL (4.0-5.2); Red Cell Distribution Width 13.4 % (11.6-14.8); White Blood Cell Count 10.7 X10^3/uL (4.5-11.0)
[2021-04-17 12:42] LABS: Lactate (Lactic Acid) 1.6 mmol/L (0.7-2.1)
[2021-04-17 12:43] LABS: Alanine Aminotransferase 22 IU/L (<35); Albumin 4.2 g/dL (3.5-5.0); Albumin Globulin Ratio 1.2 (1.0-2.8); Alkaline Phosphatase 85 U/L (38-126); Aspartate Aminotransferase 28 IU/L (14-36); BUN Creatinine Ratio 16.8 (6-22); Bilirubin Total 1.3 mg/dL (0.2-1.3); Blood Urea Nitrogen 17 mg/dL (7-17); C-Reactive Protein Quant 5.1 mg/dL (<1.0); Calcium 9.7 mg/dL (8.4-10.2); Carbon Dioxide 26 mmol/L (22-32); Chloride 105 mmol/L (98-107); Creatine Kinase 104 U/L (30-135); Estimated Glomerular Filt Rate 56.5 mL/min (>60); Globulin 3.6 g/dL (1.7-4.1); Glucose 117 mg/dL (70-100); HEMOLYSIS < 15 (0-50); Lactate Dehydrogenase 385 U/L (313-618); Potassium 3.3 mmol/L (3.4-5.1); Sodium 139 mmol/L (137-145); Total Protein 7.8 g/dL (6.3-8.2)
[2021-04-17 12:53] LABS: NT-proBNP (BNP-Adult 18+) 75 pg/mL (<125); Troponin I < 0.012 ng/mL (0.01-0.034)
[2021-04-17 12:56] LABS: CKMB % Relative Index 0.6 % (1.5-5.0); Creatine Kinase MB 0.63 ng/mL (<2.37)
[2021-04-17 12:59] LABS: Procalcitonin 0.12 ng/mL (<0.5)
[2021-04-17 13:12] LABS: Influenza A - CEPHEID Flu A NEGATIVE (NEGATIVE); Influenza B - CEPHEID Flu B NEGATIVE (NEGATIVE); Respiratory Syncytial Virus NEGATIVE (Not Detect)
[2021-04-17 13:16] LABS: Ferritin 93 ng/mL (11-264)
[2021-04-17 13:18] LABS: COVID19 - ADMIT (NP swab/PCR) Negative (Negative)
--- NOTE | 2021-04-17 13:49 | ED_ITS ---
HPI - URI/Sore Throat General Chief Complaint: Upper Respiratory Symptoms Stated Complaint: Cough/Short of breath Time Seen by Provider: 04/17/21 12:52 Source: patient and EMS Mode of arrival: EMS History of Present Illness HPI Narrative: Patient brought in by ambulance for complaints of cough and headache. This developed 3 days ago during the night. She has very bad acid reflux and she states she had reflux episode and felt the stomach acid go up and irritate the top of her throat/pharynx and since then has had repetitive coughing with headache. Denies any dyspnea. Patient called the hotline nurse instructed to go to the [facility] doctor in while she was there had a coughing fit. Brought here by ambulance. Had breathing treatment EN route which she states did not help her. It just made her cough more. She does not want breathing treatment. Patient in no distress at this time. Reviewed results with her. at [facility]. Patient does have history of lung cancer. Has appointment for routine CT scan of the chest in the next week. Denies any dyspnea. Patient sees Gastroenterology at [facility] in [place]. Had endoscopy of the stomach last year. Related Data Home Medications Medication Instructions Recorded Confirmed lisinopril 40 mg tablet 40 mg PO QPM 04/17/21 04/17/21 omeprazole 20 mg capsule,delayed 20 mg PO QAM 04/17/21 04/17/21 release Previous Rx's Medication Instructions Recorded benzonatate 100 mg capsule 100 mg PO TID PRN #20 cap 04/17/21 dicyclomine 20 mg tablet 20 mg PO BID #20 tab 04/17/21 sucralfate 1 gram tablet (Carafate) 1 g PO BID #20 tab 04/17/21 Allergies Allergy/AdvReac Type Severity Reaction Status Date / Time No Known Drug Allergies Allergy Verified 04/17/21 11:45 Review of Systems Review of Systems Narrative: GENERAL: Denies chills, fatigue, malaise, fever, sweats. HEENT: Denies sinus pain, ear pain, sore throat RESPIRATORY: Denies dyspnea, positive for cough CARDIOVASCULAR: Denies chest pain, palpitations GASTROINTESTINAL: Denies nausea, vomiting, abdominal pain : Denies dysuria, frequency, hematuria MUSCULOSKELETAL: denies muscle or bony pain SKIN: Denies rash, skin lesions NEUROLOGIC: Denies weakness, numbness ROS Unobtainable: All systems reviewed & are unremarkable except as noted in HPI and below Patient History Medical History Chronic vertigo Emphysema of lung GERD with esophagitis History of lung cancer HTN (hypertension) Surgical History Status post hysterectomy Status post lobectomy of lung Social History Smoking Status: Former smoker Smoking Status: Former smoker alcohol intake frequency: 0-2 drinks per day Substance Use Type: does not use Exam Narrative Exam Narrative: GENERAL: in no distress, not toxic not dyspneic HEAD: Normocephalic. EYES: Pupils equal round No scleral icterus. ENT: Mucous membranes moist. NECK: Trachea midline. CARDIOVASCULAR: Regular rate and rhythm without murmurs RESPIRATORY: Right-sided lung clear. Left side lung slight rhonchi but no wheezing. No rales. Patient speaks full sentences. In no respiratory distre ss. GASTROINTESTINAL: Abdomen soft, non-tender EXTREMITIES: No gross deformities. BACK: No flank tenderness. NEURO: AOx4. SKIN: Warm and dry PSYCH: Not anxious, is cooperative Initial Vital Signs Initial Vital Signs: Vital Signs Temperature 97.9 F 04/17/21 11:35 Pulse Rate 92 H 04/17/21 11:35 Respiratory Rate 28 H 04/17/21 11:35 Blood Pressure 160/96 H 04/17/21 11:35 Pulse Oximetry 98 04/17/21 11:35 Course Course Course Narrative: No new issues during course of stay. Blood pressure improved during course of stay without intervention Orders Ordered: Discontinued Medications Benzonatate (Benzonatate 100 Mg Capsule) 100 mg PO NOW ONE Stop: 04/17/21 13:49 Last Admin: 04/17/21 14:05 Dose: 100 mg Documented by: LAISHA Al Hydrox/Mg Hydrox/Simethicone 20 ml/ Lidocaine HCl 15 ml 0 ml PO NOW ONE Stop: 04/17/21 13:49 Last Admin: 04/17/21 14:05 Dose: 35 ml Documented by: LAISHA Reevaluation(s) Reevaluation #1: Reviewed results with patient and . They agree for discharge home. Return precautions reviewed with them. Symptoms today are due to acid reflux irritating her pharynx causing repetitive cough. She does have some sinusitis as well. Time: 13:58 Vital Signs Vital signs: Vital Signs - 8 hr 04/17/21 11:35 04/17/21 11:47 04/17/21 12:00 Temperature 97.9 F Pulse Rate 92 H 89 87 Respiratory Rate 28 H 22 33 H Blood Pressure 160/96 H Pulse Oximetry 98 96 97 04/17/21 12:30 04/17/21 13:00 Temperature Pulse Rate 88 76 Respiratory Rate 33 H 22 Blood Pressure 129/75 Pulse Oximetry 96 97 MDM - URI/Sore Throat Differential Diagnosis Differential diagnosis: Likely upper respiratory infection, sinusitis, viral infection, bronchitis, pharyngitis and other (Reflux pharyngitis) Lab Data Result diagrams: 04/17/21 12:00 04/17/21 12:00 Labs: Lab Results 04/17/21 04/17/21 04/17/21 Range/Units 11:32 11:32 12:00 WBC (4.5-11.0) X10^3/uL RBC (4.0-5.2) X10^6/uL Hgb (12.0-16.0) g/dL Hct (36-46) % MCV (80-100) fL MCH (26-34) PG MCHC (30-36) % RDW (11.6-14.8) % Plt Count (150-400) X10^3/uL Neut % (Auto) (50-75) % Lymph % (Auto) (25-40) % [place] % (Auto) (3-14) % Eos % (Auto) (2-4) % Baso % (Auto) (0-2) % Neut # (Auto) (5942-1497) /uL Lymph # (Auto) (2727-1615) /uL [place] # (Auto) (0-900) /uL Eos # (Auto) (0-450) /uL Baso # (Auto) (0-100) /uL Sodium (137-145) mmol/L Potassium (3.4-5.1) mmol/L Chloride (98-107) mmol/L Carbon Dioxide (22-32) mmol/L BUN (7-17) mg/dL Creatinine (0.52-1.04) mg/dL Estimated GFR (>60) mL/min BUN/Creatinine Ratio (6-22) Glucose (70-100) mg/dL Lactate (0.7-2.1) mmol/L Calcium (8.4-10.2) mg/dL Ferritin (11-264) ng/mL Total Bilirubin (0.2-1.3) mg/dL AST (14-36) IU/L ALT (<35) IU/L Alkaline Phosphatase (38-126) U/L Lactate Dehydrogenase (313-618) U/L Total Creatine Kinase (30-135) U/L CK-MB (CK-2) (<2.37) ng/mL CK-MB (CK-2) Rel Index (1.5-5.0) % Troponin I (0.01-0.034) ng/mL C-Reactive Protein (<1.0) mg/dL NT-Pro-B Natriuret Pep (<125) pg/mL Total Protein (6.3-8.2) g/dL Albumin (3.5-5.0) g/dL Globulin (1.7-4.1) g/dL Albumin/Globulin Ratio (1.0-2.8) Procalcitonin 0.12 (<0.5) ng/mL SARS-CoV-2 (PCR) Negative Cancelled (Negative) Influenza A (RT-PCR) Flu a negative (NEGATIVE) Influenza B (RT-PCR) Flu b negative (NEGATIVE) RSV (PCR) Negative (Not Detect) 04/17/21 04/17/21 04/17/21 Range/Units 12:00 12:00 12:00 WBC 10.7 (4.5-11.0) X10^3/uL RBC 4.32 (4.0-5.2) X10^6/uL Hgb 12.8 (12.0-16.0) g/dL Hct 37.8 (36-46) % MCV 87.4 (80-100) fL MCH 29.5 (26-34) PG MCHC 33.8 (30-36) % RDW 13.4 (11.6-14.8) % Plt Count 283 (150-400) X10^3/uL Neut % (Auto) 65.8 (50-75) % Lymph % (Auto) 23.4 L (25-40) % [place] % (Auto) 7.1 (3-14) % Eos % (Auto) 3.3 (2-4) % Baso % (Auto) 0.4 (0-2) % Neut # (Auto) 7000 (3005-7832) /uL Lymph # (Auto) 2500 (5854-7634) /uL [place] # (Auto) 800 (0-900) /uL Eos # (Auto) 400 (0-450) /uL Baso # (Auto) 0 (0-100) /uL Sodium 139 (137-145) mmol/L Potassium 3.3 L (3.4-5.1) mmol/L Chloride 105 (98-107) mmol/L Carbon Dioxide 26 (22-32) mmol/L BUN 17 (7-17) mg/dL Creatinine 1.01 (0.52-1.04) mg/dL Estimated GFR 56.5 L (>60) mL/min BUN/Creatinine Ratio 16.8 (6-22) Glucose 117 H (70-100) mg/dL Lactate 1.6 (0.7-2.1) mmol/L Calcium 9.7 (8.4-10.2) mg/dL Ferritin 93 (11-264) ng/mL Total Bilirubin 1.3 (0.2-1.3) mg/dL AST 28 (14-36) IU/L ALT 22 (<35) IU/L Alkaline Phosphatase 85 (38-126) U/L Lactate Dehydrogenase 385 (313-618) U/L Total Creatine Kinase 104 (30-135) U/L CK-MB (CK-2) 0.63 (<2.37) ng/mL CK-MB (CK-2) Rel Index 0.6 L (1.5-5.0) % Troponin I < 0.012 (0.01-0.034) ng/mL C-Reactive Protein 5.1 H (<1.0) mg/dL NT-Pro-B Natriuret Pep 75 (<125) pg/mL Total Protein 7.8 (6.3-8.2) g/dL Albumin 4.2 (3.5-5.0) g/dL Globulin 3.6 (1.7-4.1) g/dL Albumin/Globulin Ratio 1.2 (1.0-2.8) Procalcitonin (<0.5) ng/mL SARS-CoV-2 (PCR) (Negative) Influenza A (RT-PCR) (NEGATIVE) Influenza B (RT-PCR) (NEGATIVE) RSV (PCR) (Not Detect) Imaging Data Chest x-ray: Radiologist's Impression: [address] [address] XRay Report Signed Patient: Belinda Chua MR#: [id number] : 1965 Acct:[id number] Age/Sex: 55 / F Date of Service: 04/17/21 Loc: ED Accession Number: [id number] ?? Procedure: XR chest 1V Ordering Provider: Blas Ponce MD PROCEDURE:? XR CHEST 1V ? INDICATIONS:? flu-like symptoms ? TECHNIQUE:? One view of the chest was acquired.? ? COMPARISON:? [facility], CR, XR CHEST 1V, 11/26/2017, 17:20. ? FINDINGS:? ? Surgical changes and devices:? Surgical clips are again seen in left suprahilar region. ? Lungs and pleura:? Lungs are clear.? No pleural effusions or pneumothorax.? ? Mediastinum:? Mediastinal contours appear normal.? Heart size is normal.? ? Bones and chest wall:? No suspicious bony lesions.? Overlying soft tissues appear unremarkable.? ? IMPRESSION:? No acute cardiopulmonary pathology. ? ? Dictated by: Tobi Brown M.D. on 04/17/2021 at 12:40 ? ? Approved by: Tobi Brown M.D. on 04/17/2021 at 12:40 ? ECG Data Interpretation: Normal sinus rhythm rate [address] elevation or depression MDM Narrative Medical decision making narrative: Appropriate for discharge home. The triggering factor for coughing and headache is reflux during the middle night 3 nights ago. Has been constant since then. Return precautions reviewed with patient and . They agree for discharge and follow-up plans. As well as prescriptions provided. Nontoxic in discharge. Feeling much better at time of discharge. Discharge Plan Departure Patient Disposition: Home Clinical Impression: Reflux pharyngitis Instructions: DI for Gastroesophageal Reflux Disease (GERD) Activity Restrictions/Additional Instructions: See family doctor or your floor sander next week for recheck. Return if worse if any questions concerns. Prescription medication has been provided incident to the [facility] in [place] Prescriptions: New benzonatate 100 mg capsule 100 mg PO TID PRN (Reason: cough) Qty: 20 0RF sucralfate [Carafate] 1 gram tablet 1 g PO BID Qty: 20 0RF dicyclomine 20 mg tablet 20 mg PO BID Qty: 20 0RF No Action omeprazole 20 mg capsule,delayed release(DR/EC) 20 mg PO QAM 0RF lisinopril 40 mg tablet 40 mg PO QPM 0RF Referrals: Og Dempsey [Primary Care Provider] -
[2021-04-17] MEDS: MAG HYDROX/ALUMINUM/SIMETH SUS 20 ML, LIDOCAINE VISCOUS 2% 15 ML PO (14:05)
[2021-04-17] MEDS: BENZONATATE 100 MG CAPSULE PO (14:05)
== END 2021-04-17 14:24 | disposition home or self-care (01) ==
PROVIDERS: Emergency Provider Emergency Medicine; PCP Family Medicine
DX: K21.9 Gastro-esophageal reflux disease without esophagitis (principal); J02.9 Acute pharyngitis, unspecified; I10 Essential (primary) hypertension; Z20.822 Contact with and (suspected) exposure to COVID-19; Z87.891 Personal history of nicotine dependence
CPT/HCPCS: 36415; 71045; 80053; 82550; 82553; 82728; 83605; 83615; 83880; 84145; 84484; 85025; 86140; 87040; 87502; 87634; 87635; 93005; 93010; 99284; C9803

== ENCOUNTER → 2021-09-18 12:43 | Outpatient (CLI) | payer OTHER, SELFPAY ==
[2021-09-18 15:01] LABS: COVID19 -Nasal RAPID Negative (Negative)
== END ==
PROVIDERS: PCP Family Medicine; Visit Provider Surgery
DX: Z20.822 Contact with and (suspected) exposure to COVID-19 (principal); Z01.812 Encounter for preprocedural laboratory examination
CPT/HCPCS: 87635; C9803

== ENCOUNTER 2021-09-21 06:31 | Inpatient (IN) | payer OTHER, SELFPAY ==
[2021-09-21] VITALS (16 sets, daily range): BP systolic 120–144; BP diastolic 71–94; PULSE 78–89; RESP 11–23; TEMP 35.9–37.2; O2SAT 92–100; BMI 28.3
[2021-09-21] MEDS: LACTATED RINGERS 1,000 ML 42 ML IV ×2 (07:00→10:23)
--- NOTE | 2021-09-21 07:29 | PM.PREOP ---
Pre-operative Note Interval Note History & Physical reviewed/Exam performed by Physician: Yes Changes to H&P: No H&P completed within 30 days and has changed as indicated here:: Her outside workup was reviewed with her. EGD demonstrates 5 cm hiatal hernia consistent with upper GI demonstrating a widely patent esophagus with hiatal hernia, gastric emptying study normal. She did not undergo manometry as she had previously thought. We discussed options which would include either proceeding without manometry or delaying until this can be accomplished. Her strong preference is to proceed directly given the severity of her symptoms. Having reviewed the EGD and upper GI series there is little suspicion that she has a dysfunctional esophagus and would need an alterative form of fundoplication however she understands that without manometry there is an increased risk of postoperative dysphagia. Additional operative risks including bleeding, infection, damage to surrounding structures including vagal nerves, intestinal perforation, anesthetic complication and were discussed. Questions have been answered and she is in agreement with this plan
[2021-09-21] MEDS: CEFAZOLIN 2 GM/20 ML SYRINGE IV (08:11)
--- NOTE | 2021-09-21 08:44 | SUR.OPER ---
Lithotomy on padded OR bed. Casmalia Pad Positioner under torso. Head on pillow, arms padded and tucked at sides. Legs secured in padded yellow fins stirrups. Position approved by MD and anesthesia
[2021-09-21] MEDS: BUPIVACAINE 0.25% (PF) VIAL 30 ML INJ (10:30)
[2021-09-21] MEDS: BUPIVACAINE LIPOSOME 266 MG/20 ML VIAL INJ (10:30)
--- NOTE | 2021-09-21 10:57 | P.OP_ITS ---
Operative Date/Time/Diagnoses Date of procedure: 09/21/21 Time of procedure: 10:57 Pre-op diagnosis: hiatal hernia Post-op diagnosis: same Procedure & Clinicians Procedure: Laparoscopic converted to open hiatal hernia repair with Rukhsana Fundoplification Same procedure as scheduled: Yes Indications: 5 cm hital hernia Surgeon: Juan Perez Title Camera Operator: Marco A Boo Click Yes if Unassisted: Yes Anesthesia Type: General Operative Notes Findings: 5 cm hiatal hernia. Converted to open secondary to inability to adequately visualize the hiatus Specimen(s): none sent Estimated Blood Loss (mL): 100 Procedure in detail: Patient was brought to the operating room placed supine on the table. Bilateral lower extremity compression devices were applied. She received Ancef prior to skin incision. General anesthesia was induced she was intubated with an endotracheal tube. She was prepped and draped in sterile fashion and placed into lithotomy. Hatfield catheter was sterilely placed. Time-out was performed. A supraumbilical incision was made the fascia was grasped elevated sharply incised the abdomen was entered atraumatically a 12 mm balloon trocar was then placed into the abdomen and pneumoperitoneum was established. Additional 5 mm working ports were placed in the right and left abdominal wall in the mid axillary line superior to the umbilicus. Additional 5 mm port was placed high in the right upper quadrant. Inspection of the abdomen was made. There was a l arge hiatal hernia. The left triangular ligament we was incised to mobilize left lobe of the liver. A laparoscopic liver retractor was placed. The pars flaccida was incised the dissection was carried towards the right jorge. Despite numerous attempts at repositioning the laparoscopic liver retractor due to the large size of the left lobe liver we were unable to adequately expose the hiatus. Therefore the operation was converted to open. An upper midline incision was made the abdomen was entered self-retaining tractor placed. The proximal short gastrics were divided with electro cautery. The right jorge was identified and the plane between the right jorge and the esophagus was carefully developed with blunt dissection. Dissection was then carried anteriorly to the left jorge. The anterior and posterior vagal trunks were identified on the esophagus and they were kept with the esophageal tissue. A posterior esophageal window was formed with blunt dissection and a Bradford drain was placed around the esophagus with its nerves. The jorge were reapproximated using interrupted Ethibond suture. There was approximately 5 cm of intra-abdominal esophagus. The posterior fundus was then brought through the window. The 56 [place] bougie was placed into the esophagus and stomach. A loose floppy wrap was formed with shoe shine fashion. The fundoplication was placed overlying the ga stroesophageal junction and the wrap remained closed without tension prior to the sutures being placed. The wrap was then secured using 3 interrupted Ethibond sutures. With the 1st superior suture a partial thickness bite of the esophagus was taken. I Inspected the wrap it was without tension and accommodated forceps between the wrap and the esophagus with the bougie in place. A single Ethibond suture was placed between the wrap and the right jorge. Hemostasis was achieved the abdomen was irrigated with sterile saline. The fascia was then closed in running fashion from above and below with 1. PDS suture the subcutaneous tissue was closed with Vicryl skin closed with rodolfo. Patient tolerated procedure well and was returned to the recovery room in stable condition. Complications: none Post-operative Condition: stable Disposition: Acute Care
[2021-09-21] MEDS: ACETAMINOPHEN 325 MG TABLET 650 MG PO ×2 (11:47→22:38)
[2021-09-21] MEDS: KETOROLAC 30 MG/ML VIAL IV ×3 (11:48→22:39)
[2021-09-21] MEDS: ONDANSETRON 4 MG/2 ML INJ IV (11:48)
--- NOTE | 2021-09-21 12:27 | DI.RAD.S_ITS ---
PROCEDURE: XR CHEST 1V INDICATIONS: chest pain sp suki TECHNIQUE: One view of the chest was acquired. COMPARISON: [facility], CT, CT CHEST ABDOMEN PELVIS WITH CONTRAST, 04/19/2019, 11:58. [facility], CR, XR CHEST 1V, 11/26/2017, 17:20. [facility], CR, XR CHEST 1V, 04/17/2021, 11:47. FINDINGS: Surgical changes and devices: Epigastric postoperative clips are seen. Left lateral superior mediastinal clips are seen. Lungs and pleura: On this semiupright portable chest examination, no large pneumothorax can be seen. There is blunting of the left costophrenic angle. No jacky, focal infiltrates are seen. Mediastinum: Mediastinal contours appear normal. Heart size is normal. Bones and chest wall: No suspicious bony lesions. Age-appropriate bony degenerative changes are seen. Overlying soft tissues appear unremarkable. IMPRESSION: Blunting of the left costophrenic angle, likely related to small pleural effusion, although differential diagnosis includes atelectasis. Postoperative and degenerative changes are seen. Dictated by: Kenneth Osborn M.D. on 09/21/2021 at 11:46 Approved by: Kenneth Osborn M.D. on 09/21/2021 at 11:48
[2021-09-21] MEDS: lisinopriL 20 MG TABLET 40 MG PO (16:04)
[2021-09-21 17:01] LABS: Creatine Kinase 351 U/L (30-135); Troponin I < 0.012 ng/mL (0.01-0.034)
[2021-09-21 17:02] LABS: CKMB % Relative Index 1.7 % (1.5-5.0); Creatine Kinase MB 5.95 ng/mL (<2.37)
[2021-09-21] MEDS: PANTOPRAZOLE 40 MG VIAL IV (21:22)
[2021-09-21] MEDS: SODIUM CHLORIDE 0.9% FLUSH 10 ML IV ×2 (21:22→22:39)
[2021-09-22 02:00] VITALS: BP 119/77; PULSE 84; RESP 16; TEMP 36.7; O2SAT 96
[2021-09-22] MEDS: SODIUM CHLORIDE 0.9% FLUSH 10 ML IV ×2 (04:54→09:30)
[2021-09-22] MEDS: KETOROLAC 30 MG/ML VIAL IV ×2 (04:54→10:47)
[2021-09-22 05:58] VITALS: BP 125/78; PULSE 57; RESP 16; TEMP 37.1; O2SAT 95
[2021-09-22 06:05] LABS: Add Manual Diff / Slide Review NO; Basophils Absolute Auto 100 /uL (0-100); Basophils Percent Auto 0.5 % (0-2); Eosinophils Absolute Auto 0 /uL (0-450); Hemoglobin 11.5 g/dL (12.0-16.0); Lymphocytes Absolute Auto 1200 /uL (1100-4500); Lymphocytes Percent Auto 9.6 % (25-40); Mean Corpuscular Hemoglobin 29.1 PG (26-34); Mean Corpuscular Volume 85.5 fL (80-100); Monocytes Absolute Auto 1200 /uL (0-900); Monocytes Percent Auto 9.8 % (3-14); Neutrophils Absolute Auto 9900 /uL (1500-7000); Neutrophils Percent Auto 80.1 % (50-75); Platelet Count 263 X10^3/uL (150-400); Red Blood Cell Count 3.97 X10^6/uL (4.0-5.2); Red Cell Distribution Width 13.3 % (11.6-14.8); White Blood Cell Count 12.3 X10^3/uL (4.5-11.0)
[2021-09-22 06:10] LABS: BUN Creatinine Ratio 20.8 (6-22); Blood Urea Nitrogen 21 mg/dL (7-17); Calcium 8.3 mg/dL (8.4-10.2); Carbon Dioxide 26 mmol/L (22-32); Chloride 106 mmol/L (98-107); Estimated Glomerular Filt Rate > 60 mL/min (>60); Glucose 125 mg/dL (70-100); HEMOLYSIS < 15 (0-50); Potassium 4.3 mmol/L (3.4-5.1); Sodium 136 mmol/L (137-145)
[2021-09-22 07:00] VITALS: BP 128/79; PULSE 81; RESP 14; TEMP 36.9; O2SAT 95
[2021-09-22] MEDS: PANTOPRAZOLE 40 MG VIAL IV (09:30)
[2021-09-22 11:00] VITALS: BP 135/85; PULSE 80; RESP 14; O2SAT 98
--- NOTE | 2021-09-22 11:07 | PM.PNPO.1 ---
Subjective Subjective Date Patient Seen: 09/22/21 Time Patient Seen: 11:07 Interval history: Wants to go home. Doing well on clears. has diet planned with plenty protein and MVI. Exam Vital Signs (past 8 hours): - 09/22/21 05:58 09/22/21 07:00 Temperature 98.8 F 98.5 F Pulse Rate 57 L 81 Respiratory Rate 16 14 Blood Pressure 125/78 128/79 Pulse Oximetry 95 95 Oxygen Flow Rate 0 0 Oxygen Delivery Method Room Air Oxygen Flow Rate 0 Narrative Exam Narrative: Patient is doing well on a clear liquid diet. No dysphagia. Minimal pain complaints. Wounds are covered better dried and intact. Const General: cooperative and healthy appearing Eyes Sclera: sclerae normal Neck Neck: trachea midline Objective Labs Result Diagrams: 09/22/21 05:55 09/22/21 05:55 Labs: Laboratory Results - last 24 hr 09/21/21 09/22/21 09/22/21 13:50 05:55 05:55 WBC 12.3 H RBC 3.97 L Hgb 11.5 L Hct 34.0 L MCV 85.5 MCH 29.1 MCHC 34.0 RDW 13.3 Plt Count 263 Neut % (Auto) 80.1 H Lymph % (Auto) 9.6 L [place] % (Auto) 9.8 Eos % (Auto) 0.0 L Baso % (Auto) 0.5 Neut # (Auto) 9900 H Lymph # (Auto) 1200 [place] # (Auto) 1200 H Eos # (Auto) 0 Baso # (Auto) 100 Sodium 136 L Potassium 4.3 Chloride 106 Carbon Dioxide 26 BUN 21 H Creatinine 1.01 Estimated GFR > 60 BUN/Creatinine Ratio 20.8 Glucose 125 H Calcium 8.3 L Total Creatine Kinase 351 H CK-MB (CK-2) 5.95 H CK-MB (CK-2) Rel Index 1.7 Troponin I < 0.012 [facility] Medical History Deshpande's esophagus Chronic vertigo Emphysema of lung GERD with esophagitis History of lung cancer HTN (hypertension) Surgical History (Updated 09/12/21 @ 15:12 by Allison Peterson RN) Status post hysterectomy (1999) Status post lobectomy of lung (2006) Social History household members: spouse Smoking Status: Former smoker alcohol intake: current Assessment & Plan Post-op Postoperative Procedures: Procedures Operation Date: 09/21/21 07:45 Actual Procedure Side Surgeon p Laparoscopic CONVERTED TO OPEN ARMIN Juan Perez MD Postoperative day: 1 Postoperative status narrative: Patient is doing well on clear liquid diet. Request going home. Talked about advancing to full liquids. Her is adamant about keeping her on clear liquids for a week, and is aware of the nutrition requirements regarding protein and calories. Postoperative plan: routine post-op care Postoperative plan narrative: Home with clear liquid diet. Follow-up with Dr. Perez 1-2 weeks. Keep midline dressing on for another 24 hours. Then can take all dressings off and shower. No baths. Quality VTE Deep Vein Thrombosis/Pulmonary Embolism Present on Admission: No
--- NOTE | 2021-09-22 11:39 | CM.DANOTE ---
Initial Discharge Plan Assessment: Case received, EMR reviewed. Met with patient and spouse. Introduced self and role. 56 year old alert and oriented female admitted yesterday pm for diaphragmatic hernia repair. PCP: Sanchez Thompson, surgeon Dr Juan Perez Payer: Loly Zapien. Patient sitting up in chair with next to her. POD#1, appears stable. She states she was told she could possibly go home today if she tolerates her next meal which is a step up from clear liquids. She is hopeful to go home. P: Patient wishes to return home with her previous home arrangements. Spouse will transport. CM will continue to follow. SE Discharge Planning/Care Management Advanced directive, confirm from FAMILY Start: 09/21/21 12:47 Freq: Q24H Status: Active Protocol: Document 09/21/21 12:47 BT (Rec: 09/21/21 13:09 BT [id number]) Advance Directive, confirm on record Time 13:00 Person contacted Pt Copy received No CM Discharge Assessment Start: 09/22/21 11:37 Freq: Status: Active Protocol: Document 09/22/21 11:37 (Rec: 09/22/21 11:39 [id number]) Discharge Planning Assessment Assigned Licensed Home Inspector Magalis Farah RN/EFRAIN Advance Directives? Yes Advance Directives on File No History Provided By Patient,Family Member, Significant Other Prior Living Arrangements House Household Members spouse Type of transporation used prior to Drives own vehicle admit Independent with ADL's Yes Is patient alert and oriented? Yes Barriers to Discharge No Transportation Arrangement Spouse will transport to their home in [place] via private vehicle.. Referrals Initiated None needed Whiteboard Updated in Patient Room with Yes name and ext. # of Licensed Home Inspector Review Status In Process Next Review Type Continued Stay Review
== END 2021-09-22 14:00 | disposition home or self-care (01) | DRG 328 ==
PROVIDERS: Admitting Provider Surgery; PCP Family Medicine; Referring Provider Surgery; Visit Provider Surgery
PROC: 0DV44ZZ Restriction of Esophagogastric Junction, Percutaneous Endoscopic Approach (ICD-10-PCS; CPT 43280; principal; 2021-09-21 07:45)
DX: K44.9 Diaphragmatic hernia without obstruction or gangrene (principal); K21.9 Gastro-esophageal reflux disease without esophagitis; I10 Essential (primary) hypertension; Z87.891 Personal history of nicotine dependence; Z20.822 Contact with and (suspected) exposure to COVID-19
CPT/HCPCS: 36415; 43334; 71045; 80048; 82550; 82553; 84484; 85025; 93005; 93010; C9113; C9290; J0690; J1100; J1885; J2250; J2405; J2704; J3010

== ENCOUNTER → 2022-06-10 17:02 | Outpatient (CLI) | payer OTHER, SELFPAY ==
[2021-09-21 21:35] VITALS: BMI 28.3
[2022-06-10 19:00] LABS: Add Manual Diff / Slide Review NO; Basophils Absolute Auto 100 /uL (0-100); Basophils Percent Auto 1.1 % (0-2); Eosinophils Absolute Auto 300 /uL (0-450); Eosinophils Percent Auto 3.2 % (2-4); Hematocrit 40.9 % (36-46); Hemoglobin 13.6 g/dL (12.0-16.0); Lymphocytes Absolute Auto 3100 /uL (1100-4500); Lymphocytes Percent Auto 35.7 % (25-40); Mean Corpuscular HGB Conc 33.2 % (30-36); Mean Corpuscular Hemoglobin 29.1 PG (26-34); Mean Corpuscular Volume 87.6 fL (80-100); Monocytes Absolute Auto 800 /uL (0-900); Neutrophils Absolute Auto 4400 /uL (1500-7000); Platelet Count 311 X10^3/uL (150-400); Red Blood Cell Count 4.67 X10^6/uL (4.0-5.2); White Blood Cell Count 8.6 X10^3/uL (4.5-11.0)
[2022-06-10 19:19] LABS: Alanine Aminotransferase 23 IU/L (<35); Albumin 4.4 g/dL (3.5-5.0); Albumin Globulin Ratio 1.1 (1.0-2.8); Alkaline Phosphatase 70 U/L (38-126); Aspartate Aminotransferase 31 IU/L (14-36); BUN Creatinine Ratio 21.7 (6-22); Bilirubin Total 0.5 mg/dL (0.2-1.3); Blood Urea Nitrogen 23 mg/dL (7-17); Calcium 9.3 mg/dL (8.4-10.2); Carbon Dioxide 30 mmol/L (22-32); Chloride 101 mmol/L (98-107); Cholesterol 254 mg/dL (140-199); Estimated Glomerular Filt Rate > 60 mL/min (>60); Globulin 3.9 g/dL (1.7-4.1); Glucose 90 mg/dL (70-100); HDL Cholesterol 32 mg/dL (40-60); LDL Cholesterol Calculated 151 mg/dL (<100); Potassium 4.7 mmol/L (3.4-5.1); Sodium 137 mmol/L (137-145); Total Protein 8.3 g/dL (6.3-8.2); Triglycerides 357 mg/dL (35-150)
[2022-06-10 19:20] LABS: HEMOLYSIS 71 (0-50)
[2022-06-10 19:54] LABS: TSH w/ Reflex to FT4 1.14 uIU/mL (0.47-4.68)
== END ==
PROVIDERS: PCP Family Medicine; Referring Provider Family Medicine; Visit Provider Family Medicine
DX: R53.83 Other fatigue (principal); R73.01 Impaired fasting glucose
CPT/HCPCS: 36415; 80053; 80061; 83036; 84443; 85025

== ENCOUNTER → 2023-01-11 12:25 | Outpatient (CLI) | payer OTHER, SELFPAY ==
[2021-09-21 21:35] VITALS: BMI 28.3
--- NOTE | 2023-01-11 | DI.MG.S_ITS ---
BILATERAL DIGITAL SCREENING MAMMOGRAM 3D/2D WITH CAD: 01/11/2023 CLINICAL: Routine screening. Family history of breast cancer. Comparison is made to exams dated: 11/22/2020 mammogram - [facility], 06/23/2019 mammogram - [facility], and 02/10/2018 mammogram - [facility]. There are scattered areas of fibroglandular density in both breasts (category b / 25%-50% glandular tissue). Current study was also evaluated with a Computer Aided Detection (CAD) system. There are developing multiple oval focal asymmetries in the right breast central to the nipple middle depth. There are developing multiple oval asymmetries in the left breast central to the nipple middle depth. No other significant masses or calcifications are seen in either breast. IMPRESSION: INCOMPLETE: NEEDS ADDITIONAL IMAGING EVALUATION The developing multiple oval focal asymmetries in the right breast central to the nipple middle depth are indeterminate. Additional views with possible ultrasound are recommended. The developing multiple oval asymmetries in the left breast central to the nipple middle depth are indeterminate. Additional views with possible ultrasound are recommended. Based on the Tyrer Cuzick model (a risk assessment model) the patient's lifetime risk is 10.7% and her 10 year risk is 4.2%. According to the ACR, ACS, and NCCN guidelines, an annual breast MRI exam along with mammogram is recommended if the patient's lifetime risk is 20% or greater. This exam was interpreted at Station ID: [id number]. NOTE: For mammograms, a report in lay terms will be sent to the patient. Approximately 15% of breast malignancies will not be visualized mammographically. In the management of a palpable breast mass, a negative mammogram must not discourage biopsy of a clinically suspicious lesion. Electronically Signed By: Della garg/melody:01/13/2023 12:56:11 letter sent: Additional Imaging Needed ACR BI-RADS Category 0: Incomplete 3340F
== END ==
PROVIDERS: PCP Family Medicine; Referring Provider Family Medicine; Visit Provider Family Medicine
DX: Z12.31 Encounter for screening mammogram for malignant neoplasm of breast (principal); Z80.3 Family history of malignant neoplasm of breast; N64.89 Other specified disorders of breast
CPT/HCPCS: 77063; 77067

== ENCOUNTER → 2023-02-19 08:42 | Outpatient (CLI) | payer OTHER, SELFPAY ==
[2021-09-21 21:35] VITALS: BMI 28.3
--- NOTE | 2023-02-19 08:43 | DI.US.S_ITS ---
LIMITED ULTRASOUND OF RIGHT BREAST AND AXILLA: 02/19/2023 CLINICAL: Patient returns today to evaluate an asymmetry in the right breast. Comparison is made to exams dated: 02/19/2023 mammogram, 01/11/2023 mammogram - [facility], 12/04/2021 mammogram - out side, 11/22/2020 mammogram - [facility], 06/23/2019 mammogram - [facility], and 02/10/2018 mammogram - [facility]. Color flow and real-time ultrasound of the right breast retroareolar and axilla regions were performed. Ray scale images of the real-time examination were reviewed. There is a benign 0.4 cm oval simple cyst in the right breast central to the nipple anterior depth. This oval simple cyst is anechoic. This correlates with mammography findings. Color flow imaging demonstrates that there is no vascularity present. There also is a benign 0.3 cm oval simple cyst in the right breast at 7 o'clock in the retroareolar region. This oval simple cyst is anechoic. Color flow imaging demonstrates that there is no vascularity present. No significant abnormalities were seen sonographically in the right axilla. IMPRESSION: BENIGN There is no sonographic evidence of malignancy. Multiple bilateral simple cysts are benign. No enlarged right axillary lymph nodes. A 1 year screening mammogram is recommended. Exam findings were conveyed to the patient. This exam was interpreted at Station ID: [id number]. Electronically Signed By: John Omer M.D. sl[facility]/:02/19/2023 11:26:41 letter sent: Normal Exam Ultrasound BI-RADS: 2 Benign
--- NOTE | 2023-02-19 08:43 | DI.US.S_ITS ---
LIMITED ULTRASOUND OF LEFT BREAST AND AXILLA: 02/19/2023 CLINICAL: Patient returns today to evaluate an asymmetry in the left breast. Comparison is made to exams dated: 02/19/2023 mammogram, 01/11/2023 [address] - [facility], 12/04/2021 mammogram - out side, 11/22/2020 mammogram - [facility], 02/19/2023 ultrasound - [facility], and 02/10/2018 mammogram - [facility]. Color flow and real-time ultrasound of the left breast retroareolar and axilla regions were performed. Ray scale images of the real-time examination were reviewed. There is a benign 0.5 cm oval simple cyst in the left breast central to the nipple in the retroareolar region. This oval simple cyst is anechoic. This correlates with mammography findings. Color flow imaging demonstrates that there is no vascularity present. No significant abnormalities were seen sonographically in the left axilla. IMPRESSION: BENIGN There is no sonographic evidence of malignancy. Multiple bilateral simple cysts are benign. No enlarged left axillary lymph nodes. A 1 year screening mammogram is recommended. Exam findings were conveyed to the patient. This exam was interpreted at Station ID: [id number]. Electronically Signed By: John Omer M.D. [facility] [place]:02/19/2023 11:29:50 Entry: - 02/20/2023 12:43:58 Ultrasound BI-RADS: 2 Benign
--- NOTE | 2023-02-19 08:43 | DI.MG.S_ITS ---
BILATERAL DIGITAL DIAGNOSTIC MAMMOGRAM 3D/2D: 02/19/2023 CLINICAL: Additional evaluation requested from prior study. Comparison is made to exams dated: 01/11/2023 mammogram - [facility], 12/04/2021 mammogram - out side, 11/22/2020 mammogram - [facility], 06/23/2019 mammogram - [facility], and 02/10/2018 mammogram - [facility]. There are scattered areas of fibroglandular density in both breasts (category b / 25%-50% glandular tissue). There are developing multiple oval focal asymmetries in the right breast central to the nipple middle depth. There are developing multiple oval asymmetries in the left breast central to the nipple middle depth. Left breast biopsy clip noted. Scattered benign calcifications bilaterally. No other significant masses or calcifications are seen in either breast. IMPRESSION: INCOMPLETE: NEEDS ADDITIONAL IMAGING EVALUATION The developing multiple oval focal asymmetries in the right breast central to the nipple middle depth are indeterminate. The developing multiple oval asymmetries in the left breast central to the nipple middle depth are indeterminate. These likely represent multiple bilateral circumscribed masses or microcysts. Targeted ultrasounds are recommended and will immediately follow. Based on the Tyrer Cuzick model (a risk assessment model) the patient's lifetime risk is 10.7% and her 10 year risk is 4.2%. According to the ACR, ACS, and NCCN guidelines, an annual breast MRI exam along with mammogram is recommended if the patient's lifetime risk is 20% or greater. This exam was interpreted at Station ID: [id number]. NOTE: For mammograms, a report in lay terms will be sent to the patient. Approximately 15% of breast malignancies will not be visualized mammographically. In the management of a palpable breast mass, a negative mammogram must not discourage biopsy of a clinically suspicious lesion. Electronically Signed By: John Omer M.D. [facility] [place]/:02/20/2023 12:40:26 Entry: - 02/20/2023 12:40:26 ACR BI-RADS Category 0: Incomplete 3340F
== END ==
PROVIDERS: PCP Family Medicine; Referring Provider Family Medicine; Visit Provider Family Medicine
DX: R92.8 Other abnormal and inconclusive findings on diagnostic imaging of breast (principal); R92.323 Mammographic fibroglandular density, bilateral breasts; N60.02 Solitary cyst of left breast; N60.01 Solitary cyst of right breast
CPT/HCPCS: 76642; 77066; G0279

== ENCOUNTER → 2023-02-22 08:27 | Outpatient (CLI) | payer OTHER, SELFPAY ==
[2021-09-21 21:35] VITALS: BMI 28.3
[2023-02-22 09:41] LABS: Hemoglobin A1C% w Est Avg Glu 6.3 % (4.0-6.0)
[2023-02-22 09:45] LABS: BUN Creatinine Ratio 15.6 (6-22); Blood Urea Nitrogen 17 mg/dL (7-17); Calcium 10.6 mg/dL (8.4-10.2); Carbon Dioxide 29 mmol/L (22-32); Chloride 99 mmol/L (98-107); Estimated Glomerular Filt Rate 59 mL/min (>60); Glucose 105 mg/dL (70-100); HEMOLYSIS < 15 (0-50); Potassium 4.8 mmol/L (3.4-5.1); Sodium 137 mmol/L (137-145)
== END ==
PROVIDERS: PCP Family Medicine; Referring Provider Family Medicine; Visit Provider Family Medicine
DX: R73.01 Impaired fasting glucose (principal); N28.9 Disorder of kidney and ureter, unspecified
CPT/HCPCS: 36415; 80048; 83036

== ENCOUNTER → 2023-03-29 09:51 | Outpatient (CLI) | payer OTHER, SELFPAY ==
[2021-09-21 21:35] VITALS: BMI 28.3
[2023-03-29 10:44] LABS: BUN Creatinine Ratio 19.8 (6-22); Blood Urea Nitrogen 18 mg/dL (7-17); Calcium 10.1 mg/dL (8.4-10.2); Carbon Dioxide 31 mmol/L (22-32); Chloride 101 mmol/L (98-107); Estimated Glomerular Filt Rate > 60 mL/min (>60); Glucose 105 mg/dL (70-100); HEMOLYSIS < 15 (0-50); Potassium 5.1 mmol/L (3.4-5.1); Sodium 138 mmol/L (137-145)
[2023-03-30 08:36] LABS: Ionized Calcium 5.2 mg/dL (4.5-5.6)
[2023-04-01 01:06] LABS: Parathyroid Hormone Int 45 pg/mL (15-65)
[2023-04-01 14:44] LABS: Albumin 3.5 g/dL (2.9-4.4); Alpha-1-Globulin 0.2 g/dL (0.0-0.4); Alpha-2-Globulin 0.8 g/dL (0.4-1.0); Gamma Globulin 1.2 g/dL (0.4-1.8); Globulin Total 3.2 g/dL (2.2-3.9); Protein, Total 6.7 g/dL (6.0-8.5)
[2023-04-01 19:41] LABS: Free Kappa Lt Chains, Serum 26.8 mg/L (3.3-19.4); Free Lambda Lt Chains,Serum 16.2 mg/L (5.7-26.3)
== END ==
PROVIDERS: PCP Family Medicine; Referring Provider Family Medicine; Visit Provider Family Medicine
DX: N28.9 Disorder of kidney and ureter, unspecified (principal); E83.52 Hypercalcemia
CPT/HCPCS: 36415; 80048; 82306; 82330; 83883; 83970; 84155; 84165

== ENCOUNTER → 2023-08-13 11:36 | Outpatient (CLI) | payer OTHER, SELFPAY ==
[2021-09-21 21:35] VITALS: BMI 28.3
--- NOTE | 2023-08-13 11:38 | DI.RAD.S_ITS ---
PROCEDURE: XR SCAPULA LT INDICATIONS: pain, fell 3 wks ago TECHNIQUE: 2 views of the scapula were acquired. COMPARISON: None. FINDINGS: Bones: No fractures or dislocations. No suspicious bony lesions. Visualized ribs appear intact. Soft tissues: Overlying soft tissues appear normal. IMPRESSION: No acute bony abnormality. Dictated by: Saw Triplett M.D. on 08/13/2023 at 19:14 Approved by: Saw Triplett M.D. on 08/13/2023 at 19:15
--- NOTE | 2023-08-13 11:38 | DI.RAD.S_ITS ---
PROCEDURE: XR SHOULDER LT MIN 2V INDICATIONS: pain, fell 3 wks ago TECHNIQUE: 3 views of the shoulder were acquired. COMPARISON: None. FINDINGS: Bones: No fractures or dislocations. AC joint hypertrophy with a moderate downward going component. Mild glenohumeral joint degenerative arthritis. No suspicious bony lesions. Visualized ribs appear intact. Soft tissues: No suspicious soft tissue calcifications. IMPRESSION: Degenerative arthritis. No acute bony abnormality. Dictated by: Saw Triplett M.D. on 08/13/2023 at 19:15 Approved by: Saw Triplett M.D. on 08/13/2023 at 19:15
== END ==
LOC: RAD 11:37
PROVIDERS: PCP Family Medicine; Referring Provider Family Medicine; Visit Provider Family Medicine
DX: M19.012 Primary osteoarthritis, left shoulder; M25.512 Pain in left shoulder; G89.29 Other chronic pain
CPT/HCPCS: 73010; 73030

== ENCOUNTER → 2024-04-13 09:42 | Outpatient (CLI) | payer OTHER, SELFPAY ==
[2023-09-30 10:04] VITALS: BMI 28.3
[2024-04-13 10:43] LABS: Hemoglobin A1C% w Est Avg Glu 5.8 % (4.0-6.0)
[2024-04-13 11:34] LABS: HIV 1 & 2 Ab/Ag 4th Gen Combo NEGATIVE (NEGATIVE); Hep C Virus Ab w/Reflex Quant NEGATIVE s/c (NEGATIVE)
== END ==
LOC: LAB 09:43
PROVIDERS: PCP Family Medicine; Referring Provider Family Medicine; Visit Provider Family Medicine
DX: Z11.59 Encounter for screening for other viral diseases (principal); Z11.4 Encounter for screening for human immunodeficiency virus [HIV]; E66.9 Obesity, unspecified; R73.01 Impaired fasting glucose
CPT/HCPCS: 36415; 83036; 86803; 87389

== ENCOUNTER → 2024-09-23 12:38 | Outpatient (CLI) | payer OTHER, SELFPAY ==
[2023-09-30 10:04] VITALS: BMI 28.3
[2024-09-23 13:12] LABS: Hemoglobin A1C% w Est Avg Glu 5.7 % (4.0-6.0)
[2024-09-23 13:26] LABS: Alanine Aminotransferase 19 IU/L (<35); Albumin 4.4 g/dL (3.5-5.0); Albumin Globulin Ratio 1.5 (1.0-2.8); Alkaline Phosphatase 71 U/L (38-126); Aspartate Aminotransferase 24 IU/L (14-36); BUN Creatinine Ratio 22.7 (6-22); Bilirubin Total 1.1 mg/dL (0.2-1.3); Blood Urea Nitrogen 22 mg/dL (7-17); Calcium 10.2 mg/dL (8.4-10.2); Carbon Dioxide 27 mmol/L (22-32); Chloride 102 mmol/L (98-107); Cholesterol 155 mg/dL (140-199); Estimated Glomerular Filt Rate > 60 mL/min (>60); Globulin 2.9 g/dL (1.7-4.1); Glucose 107 mg/dL (70-99); HDL Cholesterol 38 mg/dL (40-60); HEMOLYSIS < 15 (0-50); LDL Cholesterol Calculated 47 mg/dL (<100); Potassium 5.1 mmol/L (3.4-5.1); Sodium 139 mmol/L (137-145); Total Protein 7.3 g/dL (6.3-8.2); Triglycerides 350 mg/dL (35-150)
== END ==
PROVIDERS: PCP Family Medicine; Referring Provider Family Medicine; Visit Provider Family Medicine
DX: N28.9 Disorder of kidney and ureter, unspecified (principal); E78.2 Mixed hyperlipidemia; I10 Essential (primary) hypertension; R73.01 Impaired fasting glucose
CPT/HCPCS: 80053; 80061; 83036

== ENCOUNTER → 2024-11-16 15:54 | Outpatient (CLI) | payer OTHER, SELFPAY ==
[2023-09-30 10:04] VITALS: BMI 28.3
[2024-11-16 17:22] LABS: Thyroid Stimulating Hormone 1.16 uIU/mL (0.47-4.68)
[2024-11-18 04:41] LABS: CRP, High Sensitivity 0.31 mg/L (0.00-3.00)
[2024-11-18 19:11] LABS: SS A Ro Sjogrens Antibody 0.2 AI (0.0-0.9); SS B La Sjogrens Antibody < 0.2 AI (0.0-0.9)
== END ==
PROVIDERS: PCP Family Medicine; Referring Provider Ophthalmology; Visit Provider Ophthalmology
DX: H16.223 Keratoconjunctivitis sicca, not specified as Sjogren's, bilateral (principal)
CPT/HCPCS: 36415; 84443; 85651; 86038; 86140; 86235; 86430

== ENCOUNTER → 2025-03-19 11:31 | Outpatient (CLI) | payer OTHER, SELFPAY ==
[2023-09-30 10:04] VITALS: BMI 28.3
--- NOTE | 2025-03-19 11:32 | DI.MG.S_ITS ---
MM screening mammo BI: 03/19/2025. BI-RADS: 2 CLINICAL: 59-year old female for bilateral screening mammogram. Tyrer-Cuzick lifetime risk of 6.0%. No personal or first-degree family history of breast cancer. The patient had a prior left breast biopsy. PRIOR EXAMS 02/19/2023, 01/11/2023, 11/22/2020, 06/23/2019. MAMMOGRAPHY TECHNIQUE: 2D and 3D (tomosynthesis) digital mammographic views obtained, with additional images as needed for full coverage. Current study was also evaluated with a Computer Aided Detection (CAD) system. DENSITY C. The breasts are heterogeneously dense, which may obscure small masses. MAMMOGRAPHY FINDINGS Right: Benign-appearing mass and asymmetry noted on the right. There are no suspicious masses, calcifications, or other findings in the breast. Left: Benign-appearing mass, asymmetry, and post-surgical changes noted on the left. There are no suspicious masses, calcifications, or other findings in the breast. IMPRESSION: * No evidence of malignancy with benign findings. RECOMMENDATIONS Bilateral * Annual screening mammography. OVERALL ASSESSMENT CATEGORY BI-RADS-2: Benign. The [employer] recommends annual screening mammography beginning at age 40 for women with average risk of breast cancer. ELECTRONICALLY SIGNED: Javy Carter M.D. on 03/21/2025 at 11:05:59 AM PT Interpreting Station ID: [id number]
== END ==
PROVIDERS: PCP Family Medicine; Referring Provider Family Medicine; Visit Provider Family Medicine
DX: Z12.31 Encounter for screening mammogram for malignant neoplasm of breast (principal); R92.333 Mammographic heterogeneous density, bilateral breasts
CPT/HCPCS: 77063; 77067